=== PATIENT | male | born 1980 | race Caucasian/White ===

== ENCOUNTER 2018-06-29 18:58 | Emergency (ER) | payer MEDICAID, OTHER ==
[2018-06-29 21:28] LABS: ADD MAN DIFF? NO
[2018-06-29 21:32] LABS: WHITE BLOOD COUNT 9.3 10^3/ul (4.8-10.8)
[2018-06-29 21:32] LABS: BASOPHILS % 0.3 % (0.0-2.0); EOSINOPHILS # 0.2 10^3/ul (0.0-0.5); EOSINOPHILS % 1.8 % (0.0-7.0); HEMATOCRIT 43.6 % (42.0-52.0); HEMOGLOBIN 14.5 g/dl (14.0-18.0); LYMPHOCYTES # 2.7 10^3/ul (0.8-2.9); LYMPHOCYTES % 29.1 % (15.0-51.0); MEAN CORPUSCULAR HEMOGLOBIN 28.8 pg (29.0-33.0); MEAN CORPUSCULAR HGB CONC 33.3 g/dl (32.0-37.0); MEAN CORPUSCULAR VOLUME 86.5 fl (82.0-101.0); MEAN PLATELET VOLUME 10.2 fl (7.4-10.4); MONOCYTE # 0.7 10^3/ul (0.3-0.9); NEUTROPHIL # 5.6 10^3/ul (1.6-7.5); NEUTROPHILS % 60.2 % (39.0-77.0); PLATELET COUNT 320 10^3/UL (140-415); RED BLOOD COUNT 5.04 10^6/ul (4.70-6.10); RED CELL DISTRIBUTION WIDTH 13.1 % (11.5-14.5)
== END 2018-06-29 22:42 | disposition home or self-care (01) ==
LOC: FTE 18:58
DX: S80.12XA Contusion of left lower leg, initial encounter (principal); X58.XXXA Exposure to other specified factors, initial encounter; Y92.9 Unspecified place or not applicable
CPT/HCPCS: 85025; 93971; 99284-25

== ENCOUNTER 2018-11-21 10:22 | Emergency (ER) | payer SELFPAY, MEDICAID ==
[2018-11-21] MEDS: LIDOCAINE 1% (MPF) 5 ML VIAL INFIL ×2 (11:39→13:04)
[2018-11-21] MEDS: ACETAMINOPHEN 500 MG TAB PO (13:05)
[2018-11-21] MEDS: traMADol 50 MG TAB PO (13:05)
[2018-11-21] MEDS: CEFTRIAXONE 1 GM INJ IM (13:05)
== END 2018-11-21 13:25 | disposition home or self-care (01) ==
LOC: FTE 10:22
DX: S61.112A Laceration without foreign body of left thumb with damage to nail, initial encounter (principal); F17.210 Nicotine dependence, cigarettes, uncomplicated; W26.8XXA Contact with other sharp object(s), not elsewhere classified, initial encounter; Y92.89 Other specified places as the place of occurrence of the external cause
CPT/HCPCS: 12002; 96372; 99284-25

== ENCOUNTER 2018-11-28 14:09 | Emergency (ER) | payer SELFPAY | END 2018-11-28 15:51 | disposition home or self-care (01) | LOC: FTE 15:51 | DX: Z48.01 Encounter for change or removal of surgical wound dressing (principal) | CPT/HCPCS: 99281 ==

== ENCOUNTER 2018-12-01 13:57 | Emergency (ER) | payer SELFPAY | END 2018-12-01 17:54 | disposition home or self-care (01) | LOC: FTE 13:57 | DX: Z48.02 Encounter for removal of sutures (principal) | CPT/HCPCS: 99281 ==